=== PATIENT | male | born 1995 | race Caucasian/White ===

== ENCOUNTER 2018-03-10 02:17 | Emergency (ER) | payer BC, SELFPAY ==
[2018-03-10] MEDS ORDERED: Ondansetron ODT 8 MG TAB ONE (02:42)
== END 2018-03-10 02:52 | disposition home or self-care (01) ==
LOC: ERS 02:17
DX: F10.129 Alcohol abuse with intoxication, unspecified (principal); F17.220 Nicotine dependence, chewing tobacco, uncomplicated; Z71.6 Tobacco abuse counseling
CPT/HCPCS: 99406